=== PATIENT | female | born 1980 | race African-American/Black ===

== ENCOUNTER 2016-12-25 17:04 | Emergency (ER) | payer OTHER ==
[~2016-12-25 17:04] MED LIST: ALBUTEROL20 ml INH; ARTHRITIS MED; DIFLUNISAL500 MG; GLUCOSAMIN-CHO1 EACH; HCTZ; IBUPROFEN800 MG PO; LISINOPRIL; MEDROL4 MG/DOSE- PO; NO MEDICATIONS; NORCO1 TAB 10/3 PO; NORFLEX100 M1 PO; PERCOCET5/325 PO; TYLENOL #3 PO; WELLBUTRIN; ZITHROMAX PO; [UNRECOGNIZED DRUG - OTHER]
== END 2016-12-25 18:56 | disposition home or self-care (01) ==
LOC: SED 17:04
DX: L02.31 Cutaneous abscess of buttock (principal); I10 Essential (primary) hypertension; Z88.0 Allergy status to penicillin; Z88.8 Allergy status to other drugs, medicaments and biological substances
CPT/HCPCS: 10060; 87070; 87205; 99283

== ENCOUNTER 2016-12-27 15:20 | Emergency (ER) | payer OTHER | END 2016-12-27 16:30 | disposition home or self-care (01) | LOC: SED 15:20 | DX: Z48.01 Encounter for change or removal of surgical wound dressing (principal); Z88.0 Allergy status to penicillin; Z88.6 Allergy status to analgesic agent | CPT/HCPCS: 99281 ==